=== PATIENT | male | born 1985 | race Caucasian/White ===

== ENCOUNTER 2023-06-27 19:27 | Emergency (ER) | payer BC ==
[2023-06-27] MEDS ORDERED: predniSONE 20 MG Tab PO STA (22:28)
== END 2023-06-27 22:30 | disposition home or self-care (01) ==
LOC: MW.ED 19:27
DX: R21 Rash and other nonspecific skin eruption (principal)
CPT/HCPCS: 99282; A9270; 99283

== ENCOUNTER 2025-03-30 19:33 | Emergency (ER) | payer BC | END 2025-03-30 20:20 | disposition home or self-care (01) | LOC: MW.ED 19:33 | DX: K04.7 Periapical abscess without sinus (principal); Z75.3 Unavailability and inaccessibility of health-care facilities | CPT/HCPCS: 99282; 99284 ==

== ENCOUNTER 2025-06-11 03:28 | Emergency (ER) | payer BC ==
[2025-06-11] MEDS: Benzocaine 20% Topical Spray UD MUCMEM ONE (04:14)
[2025-06-11] MEDS: Lidocaine 2% Viscous Solution 15 ML UD PO ONE (04:14)
== END 2025-06-11 04:32 | disposition home or self-care (01) ==
LOC: MW.ED 03:28
DX: K04.7 Periapical abscess without sinus (principal); K02.62 Dental caries on smooth surface penetrating into dentin; Z75.3 Unavailability and inaccessibility of health-care facilities
CPT/HCPCS: 99282; A9270; J3490